=== PATIENT | female | born 1970 | race Caucasian/White ===

== ENCOUNTER 2020-08-18 11:44 | Emergency (ER) | payer BC, SELFPAY ==
[2020-08-18 11:52] VITALS: BP 175/103; PULSE 108; RESP 14; TEMP 36.6; O2SAT 100
[2020-08-18] MEDS: LORazepam (*CRX) 0.5 MG TABLET PO (13:09)
[2020-08-18 13:47] VITALS: BP 158/98; PULSE 98; RESP 21; O2SAT 100
--- NOTE | 2020-08-18 13:53 | ED.ANXIETY ---
HPI - Anxiety General Chief Complaint: Anxiety Stated Complaint: anxiety/needs meds Time Seen by Provider: 08/18/20 11:58 Source: patient Mode of arrival: ambulatory Limitations: no limitations History of Present Illness HPI narrative: Patient is a 50-year-old male who presents to emergency department for evaluation of anxiety and panic attacks over the recent past is currently going through divorce and close to quitting her job that she currently has patient presents noting increasing panic attacks also noting that she is out of her Lyrica which is giving her diarrhea patient denies acute illness suicidal or homicidal ideation or similar occurrence in the past patient on arrival to emergency department Related Data Allergies Allergy/AdvReac Type Severity Reaction Status Date / Time No Known Allergies Allergy Verified 08/18/20 11:57 Review of Systems Review of Systems: All systems reviewed & are unremarkable except as noted in HPI and below PMFSH Past Medical History Medical History (Updated 08/18/20 @ 13:57 by Genaro Davila PA-C) Anxiety Hypertension Social History Social History (Updated 08/18/20 @ 13:55 by Genaro Davila PA-C) Smoking status: Current every day smoker Exam Narrative: Exam Narrative: GENERAL: Well-appearing, well-nourished, and in no acute distress. HEAD: Normocephalic, atraumatic. EYES: PERRLA and EOMI. ENT: Nares clear, no rhinorrhea or epistaxis. Mucous membranes moist. CHEST: Clear to auscultation. No respiratory distress. No wheezes rales or rhonchi HEART: Regular rate and rhythm. No murmur heard. . EXTREMITIES: Normal range of motion. No edema. SKIN: Warm, dry, no rash. NEURO: No focal deficits. Alert and oriented x3. Cranial nerves II through XII grossly intact PSYCH: Normal mood and affect. Course Course Emergency Course: Patient in the room advised to follow with primary care given resources will have her medication filled felt appropriate for outpatient reevaluation ABCs intact and stable vital signs stable Vital Signs Vital signs: Vital Signs Temperature 97.8 F 08/18/20 11:52 Pulse Rate 108 H 08/18/20 11:52 Respiratory Rate 14 08/18/20 11:52 Blood Pressure 175/103 H 08/18/20 11:52 Pulse Oximetry 100 08/18/20 11:52 Temperature 97.8 F 08/18/20 11:52 Pulse Rate 98 01/11/21 13:47 Respiratory Rate 21 H 08/18/20 13:47 Blood Pressure 158/98 H 08/18/20 13:47 Pulse Oximetry 100 08/18/20 13:47 MDM - Anxiety MDM Narrative Medical decision making narrative: Patient will have her medications filled be treated symptomatically given primary care follow-up and given reasons to return Discharge Plan Discharge Clinical Impression: Acute anxiety Patient Disposition: Home, Self-Care Condition: Stable Instructions: Antibiotic Form, Anxiety (ED) Additional Instructions: Follow up with your primary care doctor in 5-7 days for re-evaluation. Go to ER for worsening pain, vision changes, nausea/vomiting, fever/chills, weakness, chest pain, shortness of breath, numbness/tingling, slurred speech, difficulty walking, change in mental status etc. or any other concerns. Any thoughts of harming yourself or others return to emergency department Take any prescribed medications as directed. Prescriptions: New pregabalin [Lyrica] 150 mg capsule 150 mg PO BID 14 Days Qty: 28 RF: 0 hydroxyzine pamoate [Vistaril] 25 mg capsule 25 mg PO BID PRN (Reason: anxiety) Qty: 7 RF: 0 Follow-up/Referrals: Ranjan Salter MD [Physician] - PHYSICIAN NOT ON STAFF,NONSTAFF [Primary Care Provider] - Stand Alone Forms: Work/School Release IP
[2020-08-18 14:17] VITALS: BP 153/93; PULSE 80; RESP 20; TEMP 36.6; O2SAT 99
== END 2020-08-18 14:20 | disposition home or self-care (01) ==
PROVIDERS: Emergency Provider Emergency Medicine
DX: F41.9 Anxiety disorder, unspecified (principal); I10 Essential (primary) hypertension; F17.200 Nicotine dependence, unspecified, uncomplicated
CPT/HCPCS: 99283; A9270